=== PATIENT | female | born 1930 | race Caucasian/White ===

== ENCOUNTER 2016-09-22 08:52 | Outpatient (CLI) ==
[2014-10-23 16:27] VITALS: BMI 19.3
[2016-09-22 13:06] LABS: BASOPHILS % (AUTO) 0.5 % (0.0-3.0); EOSINOPHILS # (AUTO) 0.1 K/ul (0.0-0.7); EOSINOPHILS % (AUTO) 1.9 % (0.0-7.0); HEMATOCRIT 37.6 % (37.0-47.0); IMMATURE GRANULOCYTE % (AUTO) 0.4 % (0.0-5.0); LYMPHOCYTES # (AUTO) 1.8 K/uL (0.60-3.4); MEAN CORPUSCULAR HEMOGLOBIN 29.4 pg (27.0-31.0); MEAN CORPUSCULAR HGB CONC 31.9 (31.8-35.4); MEAN CORPUSCULAR VOLUME 92.2 fl (81.0-99.0); MONOCYTES # (AUTO) 0.4 K/uL (0.4-2.0); MONOCYTES % (AUTO) 6.7 (0-10); NEUTROPHILS # (AUTO) 3.3 K/ul (2.0-6.9); NEUTROPHILS % (AUTO) 58.5; PLATELET COUNT 222 10^3/uL (140-440); RED BLOOD COUNT 4.08 10^6/ul (4.20-5.40); WHITE BLOOD COUNT 5.69 K/ul (4.6-10.2)
[2016-09-22 13:23] LABS: ALBUMIN 4.3 g/dL (3.4-5.0); ALBUMIN/GLOBULIN RATIO 1.54; ANION GAP 14.3; BILIRUBIN,TOTAL 0.54 mg/dL (0.00-1.20); BUN/CREATININE RATIO 15.53; CALCIUM 11.4 mg/dL (8.2-10.2); CHOL/HDL RATIO 5.4 (4.5-5.5); CREATININE 1.03 mg/dL (0.60-1.30); POTASSIUM 3.3 mmol/L (3.5-5.10); TOTAL PROTEIN 7.1 g/dL (5.8-8.1)
[2016-09-22 13:43] LABS: BILIRUBIN,URINE Negative (NEGATIVE); KETONES,URINE Negative (NEGATIVE); LEUKOCYTE ESTERASE ,URINE 1+ (NEGATIVE); NITRITE,URINE Negative (NEGATIVE); PROTEIN,URINE Negative (NEGATIVE); URINE, BLOOD Negative (NEGATIVE)
[2016-09-22 13:46] LABS: ADD URINE MICROSCOPIC YES; BACTERIA,URINE 1+ (NOT PRESENT)
== END 2016-09-22 08:53 | disposition home or self-care (01) ==
LOC: LAB 08:52
PROVIDERS: ATTEND General Practice
DX: I10 Essential (primary) hypertension (principal); E55.9 Vitamin D deficiency, unspecified; E11.9 Type 2 diabetes mellitus without complications; Z79.899 Other long term (current) drug therapy
CPT/HCPCS: 36415; 80053; 80061; 81001; 82306; 83036; 85025; 87086; 87186

== ENCOUNTER 2016-10-03 17:48 | Outpatient (CLI) ==
[2014-10-23 16:27] VITALS: BMI 19.3
== END 2016-10-03 17:49 | disposition home or self-care (01) ==
LOC: LAB 17:48
PROVIDERS: ATTEND General Practice
DX: E34.9 Endocrine disorder, unspecified (principal)
CPT/HCPCS: 36415; 83970

== ENCOUNTER 2016-10-10 09:37 | Outpatient (CLI) | payer OTHER ==
[2014-10-23 16:27] VITALS: BMI 19.3
--- NOTE | 2016-10-10 11:49 | DI ---
EXAM: Fluoroscopic barium swallow HISTORY: One episode of choking with need of Heimlich maneuver. COMPARISON: None FINDINGS: Real time fluoroscopic evaluation was performed by Dr. Prabhjot Betancur with images provided for purposes of dictation. There is a normal stripping wave. There is nodular soft tissue creatin g some mild mass effect on the esophagus superiorly at the level of the superior aspect of the cervi margarita fusion hardware. This does not slowly flow of fluid and demonstrates approximately 50% narrowin g on lateral view. IMPRESSION: Minimal soft tissue posteriorly which may be within the esophagus or causing mass effec t on the esophagus at the level of the superior aspect of cervical fusion with approximately 50% shelly rowing on lateral view. Direct visualization is recommended.
== END 2016-10-10 09:38 | disposition home or self-care (01) ==
LOC: RAD 09:37
PROVIDERS: ATTEND General Practice
DX: T17.308A Unspecified foreign body in larynx causing other injury, initial encounter (principal)

== ENCOUNTER 2016-10-15 08:02 | Outpatient (CLI) ==
[2014-10-23 16:27] VITALS: BMI 19.3
--- NOTE | 2016-10-15 12:04 | NM ---
EXAM: Parathyroid scan HISTORY:Endocrine disorder, unspecified. COMPARISON:None of this type. PROCEDURE:The the patient was injected with 20.5 mCi of 99m technetium Sestamibi intravenously. Ant erior, left anterior oblique and right anterior oblique images were obtained at 15 minutes and again at 2 hours. Additional SPECT imaging was performed. FINDINGS:Initial images demonstrate normal physiologic distribution of activity within the salivary glands and thyroid gland and myocardium.The delayed images demonstrate normal washout of activity fr om the thyroid gland with no residual activity likely to represent parathyroid adenoma. The examinat ion covers the anatomy from the skull base through the upper margin of the left ventricle. IMPRESSION: 1.The parathyroid scan does not demonstrate evidence of a parathyroid adenoma. 2.The examination demonstrates normal physiologic activity within the thyroid gland, salivary glands , and left ventricular myocardium.
== END 2016-10-15 08:03 | disposition home or self-care (01) ==
LOC: RAD 08:02
PROVIDERS: ATTEND General Practice
DX: E34.9 Endocrine disorder, unspecified (principal); E83.52 Hypercalcemia

== ENCOUNTER 2016-11-06 13:04 | Outpatient (CLI) ==
[2014-10-23 16:27] VITALS: BMI 19.3
--- NOTE | 2016-11-06 14:25 | CT ---
EXAM: CT ABDOMEN AND PELVIS HISTORY: Weight loss, lower abdominal pain, previous appendectomy, cholecystectomy and hysterectomy TECHNIQUE: CT abdomen and pelvis without intravenous contrast. Images were reconstructed using 5 m m section thickness. Reformations were prepared. COMPARISON: 08/13/2014 FINDINGS: Diagnostic limitations exist without including contrast enhanced images. No focal hepatic or spleni c lesions identified. Gallbladder is absent. Moderate fatty replacement of the pancreas. Adrenal glands appear normal. No hydronephrosis or ureteral obstruction. Moderate atherosclerotic disease of the aorta. No gastric distension. No appendix is identified. There is moderate distal colon diverticulosis. Normal bowel gas pattern. No uterus identified. Urinary bladder within normal limits. There is no ascites or inflammatory infiltration of the abdominal fat. No abdominal wall hernia. Bones appear demineralized. There is moderately severe degenerative ibrahim ges of the spine. Lung bases are clear. No pneumoperitoneum. IMPRESSION: No distinct etiology for weight loss or abdominal pain identified. There is moderate d istal colon diverticulosis without signs of diverticulitis or bowel obstruction. No ascites or infl ammatory infiltration of the abdominal fat. No free air. There is moderate atherosclerotic disease of the aorta.
== END 2016-11-06 13:05 | disposition home or self-care (01) ==
LOC: RAD 13:04
PROVIDERS: ATTEND General Practice
DX: R63.4 Abnormal weight loss (principal); R68.83 Chills (without fever)

== ENCOUNTER 2017-01-23 14:16 | Outpatient (CLI) | payer OTHER ==
[2014-10-23 16:27] VITALS: BMI 19.3
--- NOTE | 2017-01-23 16:15 | US ---
EXAM: ULTRASOUND CAROTID DUPLEX, BILATERAL HISTORY: Dizziness and giddiness FINDINGS: Brooks-scale ultrasound, color Doppler and spectral analysis was performed. Velocities are in meters per second. There is a large amount of heterogeneous atherosclerotic plaque distributed within the carotid bulbs and internal/external carotid arteries with some areas appearing to be at least 50% vessel diameter visually. RIGHT: External carotid artery peak systolic velocity: 1.1 Common carotid artery peak systolic velocity/end diastolic velocity: 0.4/0.1 Internal carotid artery peak systolic velocity: 1.5 ICA/CCA peak systolic velocity ratio: 3.5 ICA end diastolic velocity: 0.1 LEFT: External carotid artery peak systolic velocity: 0.6 Common carotid artery peak systolic velocity/end diastolic velocity: 0.6/0.1 Internal carotid artery peak systolic velocity: 1.1 ICA/CCA peak systolic velocity ratio: 1.7 ICA end diastolic velocity: 0.2 The right and left vertebral arteries were antegrade. IMPRESSION: 1. There is a large amount of heterogeneous atherosclerotic plaque distributed within the carotid b ulbs and internal/external carotid arteries with some areas appearing to be at least 50% vessel diam eter visually. 2. The right internal carotid artery peak systolic velocity of 1.5 meters per second falls within t he moderate range of stenosis. Moderate indicates 50 - 69% vessel diameter. The right-sided ICA/CC A peak systolic velocity ratio 3.5 correlates with this. 3. No sonographic evidence of hemodynamically significant stenosis on the left. 4. Both vertebral arteries were antegrade.
== END 2017-01-23 14:17 | disposition home or self-care (01) ==
LOC: RAD 14:16
PROVIDERS: ATTEND General Practice
DX: R42 Dizziness and giddiness (principal)

== ENCOUNTER 2017-01-29 11:56 | Outpatient (CLI) | payer OTHER ==
[2014-10-23 16:27] VITALS: BMI 19.3
--- NOTE | 2017-01-29 13:32 | MRI ---
EXAM: MRA brain without IV contrast. DATE: 01/29/2017. HISTORY: Dizziness and giddiness. TECHNIQUE: 3-D [id number] sequence centered on the [place] was performed without IV contr ast, using 1.2 Yana magnet. 3-D MIP reconstruction images of the intracranial arteries were produc ed in addition to the axial source images. Note: Degree of arterial vascular stenoses determined using NASCET criteria. COMPARISON: MRI brain 01/29/2017. FINDINGS: Neither vertebral artery is dominant. Basilar artery is normal in diameter, without foca l stenosis, dissection or aneurysm. Each superior cerebellar artery is intact. Right P1 segment is absent. Right COFFEE BLENDER originates from the right supraclinoid ICA.. The left PCOM is intact. ACOM is not visible . Symmetric bilateral blood flow is evident within the anterior, middle, and posterior cerebral artery distributions peripherally. No intracranial aneurysm or AVM is detected. Both rachele ous ICAs are normal. Right cavernous ICA C3 segment demonstrates a 4.4 mm length region of reduced flow signal and tandem areas of luminal reduction to 1 mm diameter, compared with an intervening 2.6 mm diameter focus. Right C Q segment cavernous ICA diameter is 1.4 mm diameter. Cavernous ICA diam eter is 1 mm diameter x 5.2 mm length. Left cavernous ICA C3 segment demonstrates that the 7.7 mm le ngth region of will mild letter narrowing to 1.7 mm diameter, compared to a more proximal diameter o f 3.1 mm. C2 segment is approximately 1 mm diameter x 3 mm length. Left cavernous ICA C1 segment 7 mm length luminal diameter reduction to 1 mm and reduced flow signal are observed. IMPRESSIONS: 1. Atretic right PCOM and ACOM. 2. Intact left PCOM. 3. No intracranial aneurysm or AVM. 4. Vertebral / basilar arteries are normal. 5. Bilateral petrous ICAs are normal. 6. Bilateral cavernous ICA moderate stenoses (50-69%).
--- NOTE | 2017-01-29 13:50 | MRI ---
EXAM: MRI brain without IV contrast. DATE: 01/29/2017. HISTORY: Dizziness and giddiness. TECHNIQUE: Sagittal T1W, axial T2W, axial FLAIR, axial T1W, axial DWI, and coronal T2W GRE sequence s of the brain were obtained using 1.5 Yana magnet. No IV contrast. COMPARISON: MRA brain 01/29/2017. CT head 05/28/2016, line. FINDINGS: The ventricles, cisterns, and subarachnoid spaces are commensurately enlarged due to invo lutional change. No midline shift, mass effect or abnormal extra-axial fluid collection is apparent . Probable old infarct (9.5 mm) in the left frontal centrum semiovale and axial image #19. Subtle T2W bright, T2W/FLAIR dark, 4.3 mm and 10 mm foci in the left cerebellum are likely old infarcts. N o acute infarct, hemorrhage or neoplasm is identified. Small, confluent rim of T2W/FLAIR hyperinten sity is observed in the white matter abutting each lateral ventricle. Multiple 2-19 mm, T2W/FLAIR b right foci are scattered within the mendenhall radiata, centrum semiovale, and subcortical white matter bilaterally. The quinn - white matter differentiation is normal. The 7th/8th cranial nerve complexe s, cerebellopontine angles, brainstem, and visible cervical spinal cord are normal. There is no cer ebellar tonsillar ectopia. The pituitary gland is normal in size and signal. Corpus callosum is no rmal in size and configuration. Flow voids are present in the major intracranial arteries and in th e dural venous sinuses. No aneurysm, AVM or dural venous sinus thrombosis is apparent. Appearance of the lens of each eye suggests prior cataract surgery. No other orbit abnormality is identified. The mastoid air cells are unremarkable. There is no acute sinusitis. No neck mass or lymphadenopa thy is detected. No calvarial neoplasm or acute fracture is evident. There is approximate 1.5 mm an terior subluxation of C3 relative to C4. Metal susceptibility artifact from previous ACDF at C5-6 i s noted. IMPRESSIONS: 1. No acute infarct, hemorrhage, mass or hydrocephalus. 2. Mild/moderate supratentorial small vessel disease. 3. 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 4. Mild cerebral and minor cerebellar atrophy. 5. S/P ACDF at C5-C6-C7. C3-4 mild DDD.
== END 2017-01-29 11:57 | disposition home or self-care (01) ==
LOC: RAD 11:56
PROVIDERS: ATTEND General Practice
DX: R42 Dizziness and giddiness (principal); I65.21 Occlusion and stenosis of right carotid artery; H53.8 Other visual disturbances

== ENCOUNTER 2017-05-07 12:42 | Outpatient (CLI) | payer OTHER ==
[2014-10-23 16:27] VITALS: BMI 19.3
[2017-05-07 12:48] LABS: BASOPHILS # (AUTO) 0.1 K/uL (0-0.2); BASOPHILS % (AUTO) 0.9 % (0.0-3.0); EOSINOPHILS # (AUTO) 0.2 K/ul (0.0-0.7); EOSINOPHILS % (AUTO) 3.5 % (0.0-7.0); HEMATOCRIT 34.5 % (37.0-47.0); HEMOGLOBIN 11.6 g/dl (12.0-16.0); IMMATURE GRANULOCYTE % (AUTO) 0.3 % (0.0-5.0); LYMPHOCYTES # (AUTO) 1.7 K/uL (0.60-3.4); LYMPHOCYTES % (AUTO) 28.8 (10.0-50.0); MEAN CORPUSCULAR HEMOGLOBIN 29.7 pg (27.0-31.0); MEAN CORPUSCULAR HGB CONC 33.6 (31.8-35.4); MEAN CORPUSCULAR VOLUME 88.2 fl (81.0-99.0); MONOCYTES # (AUTO) 0.6 K/uL (0.4-2.0); MONOCYTES % (AUTO) 10.4 (0-10); NEUTROPHILS # (AUTO) 3.2 K/ul (2.0-6.9); NEUTROPHILS % (AUTO) 56.1; PLATELET COUNT 221 10^3/uL (140-440); RED BLOOD COUNT 3.91 10^6/ul (4.20-5.40); WHITE BLOOD COUNT 5.76 K/ul (4.6-10.2)
[2017-05-07 12:55] LABS: BILIRUBIN,URINE Negative (NEGATIVE); KETONES,URINE Negative (NEGATIVE); LEUKOCYTE ESTERASE ,URINE 3+ (NEGATIVE); NITRITE,URINE Negative (NEGATIVE); PH,URINE 6.5 (5-9); PROTEIN,URINE Negative (NEGATIVE); URINE, BLOOD Negative (NEGATIVE)
[2017-05-07 12:58] LABS: ADD URINE MICROSCOPIC YES
[2017-05-07 13:08] LABS: ALBUMIN 3.8 g/dL (3.4-5.0); ALBUMIN/GLOBULIN RATIO 1.52; BILIRUBIN,TOTAL 0.25 mg/dL (0.00-1.20); BUN/CREATININE RATIO 15.62; CALCIUM 10.8 mg/dL (8.2-10.2); CHOL/HDL RATIO 3.8 (4.5-5.5); CREATININE 1.28 mg/dL (0.60-1.30); TOTAL PROTEIN 6.3 g/dL (5.8-8.1)
== END 2017-05-07 12:43 | disposition home or self-care (01) ==
LOC: LAB 12:42
PROVIDERS: ATTEND General Practice
DX: E11.9 Type 2 diabetes mellitus without complications (principal); I25.10 Atherosclerotic heart disease of native coronary artery without angina pectoris; I10 Essential (primary) hypertension; Z79.899 Other long term (current) drug therapy
CPT/HCPCS: 36415; 80053; 80061; 81001; 85025

== ENCOUNTER 2017-06-15 16:10 | Outpatient (CLI) | payer OTHER ==
[2014-10-23 16:27] VITALS: BMI 19.3
== END 2017-06-15 16:11 | disposition home or self-care (01) ==
LOC: LAB 16:10
PROVIDERS: ATTEND General Practice
DX: E55.9 Vitamin D deficiency, unspecified (principal)
CPT/HCPCS: 36415; 82306

== ENCOUNTER 2017-10-26 15:56 | Outpatient (CLI) | payer OTHER ==
[2014-10-23 16:27] VITALS: BMI 19.3
== END 2017-10-26 15:57 | disposition home or self-care (01) ==
LOC: LAB 15:56
PROVIDERS: ATTEND General Practice
DX: I10 Essential (primary) hypertension (principal); I25.10 Atherosclerotic heart disease of native coronary artery without angina pectoris; M54.6 Pain in thoracic spine; E11.9 Type 2 diabetes mellitus without complications; Z79.899 Other long term (current) drug therapy
CPT/HCPCS: 36415; 80053; 80061; 81001; 82550; 83036; 84484; 85025; 87086; 93005; 93010

== ENCOUNTER 2017-10-26 17:55 | Inpatient (IN) ==
[2017-10-26] MEDS ORDERED: TYLENOL PO PRN (19:03)
[2017-10-26] MEDS ORDERED: DRISDOL PO SCH (19:30)
[2017-10-26 20:13] VITALS: BMI 18.3
--- NOTE | 2017-10-26 20:17 | DI ---
EXAM: AP single view of the chest. HISTORY: Respiratory/cough. FINDINGS: There is fusion hardware in the spine. The cardiac silhouette and pulmonary vasculature are within normal limits. The costophrenic angles are clear. No infiltrate or consolidation. Impression: No acute cardiopulmonary disease.
[2017-10-26] MEDS ORDERED: ISOSORBIDE MONONITRATE 120 MG PO SCH (21:00)
[2017-10-26] MEDS ORDERED: TOPROL XL PO SCH (21:00)
[2017-10-26] MEDS: D5%-NS-KCL 20 MEQ/L IV SOL 1,000 ML IV SCH (21:54)
[2017-10-26] MEDS ORDERED: IMDUR ONE (22:16)
[2017-10-26] MEDS: NORVASC PO SCH (22:19)
[2017-10-26] MEDS: ATIVAN PO PRN (22:20)
[2017-10-27] MEDS ORDERED: PRILOSEC PO SCH (06:30)
[2017-10-27] MEDS: TRADJENTA PO SCH (08:23)
[2017-10-27] MEDS: PRILOSEC PO SCH ×2 (08:24→17:00)
[2017-10-27] MEDS: LOPRESSOR PO SCH (08:24)
[2017-10-27] MEDS: COZAAR PO SCH (08:24)
[2017-10-27] MEDS: HYDROCHLOROTHIAZIDE PO SCH (08:24)
[2017-10-27] MEDS: D5%-NS-KCL 20 MEQ/L IV SOL 1,000 ML IV SCH ×2 (08:27→18:25)
[2017-10-27] MEDS ORDERED: HYZAAR 50-12.5 MG TAB PO SCH (09:00)
[2017-10-27] MEDS ORDERED: NON-FORMULARY MEDICATION (Hydrochlorothiazide [Hydrochlorothiazide] 12.5 MG) PO SCH (09:00)
[2017-10-27] MEDS ORDERED: NON-FORMULARY MEDICATION (Amlodipine Besylate [Norvasc] 2.5 MG) PO SCH (09:00)
[2017-10-27] MEDS: NORVASC PO SCH (20:45)
[2017-10-27] MEDS: IMDUR PO SCH (20:45)
[2017-10-28] MEDS: D5%-NS-KCL 20 MEQ/L IV SOL 1,000 ML IV SCH ×2 (04:28→15:08)
[2017-10-28] MEDS: PRILOSEC PO SCH ×2 (05:47→17:06)
[2017-10-28] MEDS: TRADJENTA PO SCH (08:29)
[2017-10-28] MEDS: LOPRESSOR PO SCH (08:29)
[2017-10-28] MEDS: HYDROCHLOROTHIAZIDE PO SCH (08:30)
[2017-10-28] MEDS: COZAAR PO SCH (08:30)
[2017-10-28] MEDS: MIRALAX PO PRN (12:55)
[2017-10-28] MEDS: CIPRO PO SCH ×2 (12:56→20:42)
[2017-10-28] MEDS: IMDUR PO SCH (20:42)
[2017-10-28] MEDS: NORVASC PO SCH (20:43)
[2017-10-28] MEDS: ATIVAN PO PRN (20:44)
[2017-10-29] MEDS: CIPRO PO SCH ×2 (05:39→20:18)
[2017-10-29] MEDS: PRILOSEC PO SCH ×2 (05:39→16:31)
--- NOTE | 2017-10-29 07:50 | PN ---
DATE OF VISIT: 10/27/17 The patient claims that she feels better today and the heaviness in the arm and shoulder area has more or less faded away. She denies any pain in the back, which she had previously prior to the Ranexa. She did have studies in [place] by her memorial mason. Those were negative. The patient's memorial mason is Dr. Jack. I will try to talk to him tomorrow. LUNGS: Her lungs are clear auscultation. HEART: Normal sinus rhythm. She told me that her daughter had looked at Ranexa and the symptoms that she is experiencing are part of the adverse effects of the medication. The patient, today, 10/27/2017 at 6 p.m. showed a temperature of 97.9, pulse 68 , blood pressure 145/60, respiratory rate 16, oxygen saturation 100 at room air. She did eat 75% of her dinner. Her CK and Troponin on admission 2017 were normal. EKG is slightly abnormal, but no acute changes. NATALIAD
--- NOTE | 2017-10-29 08:02 | PN ---
DATE OF VISIT: 10/28/17 The patient's CBC today showed a normal WBC with a declining hemoglobin and hematocrit from 9.3 to 8.9 and from 28 to 27.4 respectively. This patient's previous hemoglobin and hematocrit were higher, although below normal. I am wondering whether this patient's pain is probably related to the anemia, since the carrying capacity for oxygen is much less. The patient, according to Ashley Stanton, has an appointment with Dr. Jack tomorrow. I feel like maybe she should go there and we will discharge her from here and let Dr. Jack decide. Her E GFR was 54 yesterday and 63 today and the BUN was 16 down to 10. The patient had not been eating or drinking very much and that may have been the reason for the slightly elevated BUN, near upper limit of normal. Her total protein is low at 5.1 on admission and is 4.8 the following day. Her hemoglobin prior to admission was 10.8 at the office. Her BUN then was 18. The urinalysis was abnormal with 30-50 WBC's, 1+ leukocyte esterase, nitrite negative, 3+ blood. Urine culture E.Coli sensitive to a host of medications including Cipro, Penicillin, Cephalosporin, Aminoglycoside, plus Bactrim. The patient is allergic to Metformin, Penicillin and Codeine. The patient's urinalysis prior to admission showed E. Coli and sensitive to host of medications and this patient is given Cipro 500 mg twice a day. Again, her hemoglobin was 10.8 prior to admission, but the BUN was 18. She was dehydrated since she was not eating. With hydration this patient has a severe anemia with source undetermined. She also has hypoproteinemia, as well as hypoalbuminemia. I will try to talk to Dr. Jack today whether blood transfusion maybe helpful to this patient. [facility]
--- NOTE | 2017-10-29 08:09 | PN ---
DATE: 10/28/17 at 02:[address] YOLANDA GONZALEZ WITH REGARDS TO MRS. ELIZABETH STRICKLAND I did relay to him the history and that the patient is in the hospital. The patient's hemoglobin is down to 8.9. I did inform him that I stopped the Ranexa and she seemed to feel better. I did inform him also on what Ranexa was doing to her. He mentioned that maybe a blood transfusion might help the problem of chest pain or angina. I had explained to the patient earlier that that maybe part of the reason why she has anginal pain because of the lack of RBC that carries oxygen. This patient will again be given a 2 unit transfusion and see if her pain would improve. Dr. Gonzalez told me that he will be glad to see her anytime when she is done with the transfusion and when she is at home. I did tell me that she had an appointment with him today or tomorrow, but she had cancelled that. TUCKER
[2017-10-29] MEDS: MIRALAX PO PRN (08:55)
[2017-10-29] MEDS: HYDROCHLOROTHIAZIDE PO SCH (08:56)
[2017-10-29] MEDS: COZAAR PO SCH (08:56)
[2017-10-29] MEDS: TRADJENTA PO SCH (08:57)
[2017-10-29] MEDS: LOPRESSOR PO SCH (08:57)
[2017-10-29] MEDS ORDERED: TYLENOL PO PRN (13:34)
--- NOTE | 2017-10-29 14:13 | PN ---
DATE: 10/28/17 CONVERSATION WITH ELIZABETH GUPTA The patient is in the hospital because of the heaviness in both arms with Ranexa. The Ranexa was discontinued. I did tell Ms. Gupta that I had talked to Dr. Jack, her catalyst supervisor who prescribed the Ranexa and informed Dr. Jack that I had stopped the medication and that she is in the hospital. I also informed Dr. Jack that her hemoglobin and hematocrit are down further at 8.[address] Jack felt that maybe blood transfusion would help with the chest pain and in the back. I had explained that earlier to the patient that might have contributed to her chest problem. Dr. Jack felt that the blood transfusion may help and I do agree with that and I told the patient that we will give her 2 units of transfusion, one tonight and one tomorrow and see what happens. She also told me that her daughter and son in law would like to talk to me. I passed by the room again, but they were still not there and she told me that they would be back tonight. I told her that I may not be in the hospital anymore by the time they come back. I would be glad to talk to them tomorrow. TUCKER
[2017-10-29] MEDS: ATIVAN PO PRN (20:17)
[2017-10-29] MEDS: IMDUR PO SCH (20:17)
[2017-10-29] MEDS: NORVASC PO SCH (20:17)
[2017-10-30] MEDS: CIPRO PO SCH (05:36)
[2017-10-30] MEDS: PRILOSEC PO SCH (05:36)
[2017-10-30 06:01] VITALS: TEMP 97.7
[2017-10-30] MEDS: LOPRESSOR PO SCH (09:42)
[2017-10-30] MEDS: COZAAR PO SCH (09:42)
[2017-10-30] MEDS: TRADJENTA PO SCH (09:42)
[2017-10-30] MEDS: HYDROCHLOROTHIAZIDE PO SCH (09:42)
[2017-10-30 11:04] VITALS: BP 130/70
--- NOTE | 2017-11-19 10:03 | PN ---
DATE OF VISIT: 10/29/17 SUBJECTIVE: This is an 87 year old female who was admitted to the hospital because of the pain in the back that improved with Ranexa but now has heaviness in both arms and shoulder. LUNGS: Clear to auscultation in both sides HEART: Normal sinus rhythm The patient was given 2 units of transfusion and the hgb after 4:25pm 10/29/17 was 13.5, hct 39.9. The patient claims to be feeling well and had no reaction to the transfusion. Her color is much better and she feels stronger. Told her that we will see how she does tomorrow and most likely be discharged. VITAL SIGNS: Temperature 98.2, pulse 69, blood pressure 170/88, respiratory rate 20, oxygen saturation 95 at room air. She ate only 25% of diner. She however is in good spirits. TUCKER
--- NOTE | 2017-11-26 10:58 | DS ---
PATIENT IDENTIFICATION: This is an 86 year old female admitted to the hospital because of heaviness in both arms with prior history of coronary artery disease with balloon angioplasty stent. The patient had previous posterior chest wall pain and was seen by her certified master safe technician and had studies done showing no myocardial ischemia. The patient's medication Imdur ER was increased to 120mg daily at bedtime and Ranexa 500mg was added. The patient was feeling bad since then and increasingly. The patient was seen at the office and CBC plus CMP and urinalysis was done and the patient was found to have severe anemia with abnormal urinalysis, hematuria. HOSPITAL COURSE: The patient was admitted to the hospital to rule out any angina. She also will be treated for the urinary tract infection if the culture does show bacterial growth. The patient on admission has no significant abnormalities on physical examination except for the Pallor. LUNGS: Clear HEART: Normal sinus rhythm The Ranexa was discontinued but the Imdur was left in place. The other medications also were continued. The patient's repeat CBC on 10/27/17 showed a severe anemia with hgb of 9.3, hct 28, chemistry unremarkably. EGFR 54, liver panel normal and total protein as well as albumin is below normal. The Troponin and creatinine kinase were normal. The patient claims to be feeling better without the Ranexa. I had discussed the case with her certified master safe technician, Dr. José Luis Jack and felt that because of the anemia which maybe the reason for the pain on the posterior chest as well as the heaviness in both arms that a blood transfusion maybe helpful. I had discussed this with the patient as well as relatives and the reason. I did also tell them that I had discussed these with Dr. Jack. 2 units of packed cells were then typed and crossed and the patient received a transfusion in the evening of 10/27/17. Her hgb after the transfusion the following day 10/28/17 was 11.4, hct 33.9. The urine culture showed e-coli which is sensitive to Cipro and the patient was prescribed Cipro 500mg twice a day. The patient tolerated the medication well. The patient claimed that she feels much better and the pain in the back is nonexistent and the heaviness in the arm in both sides has decreased remarkably. Another unit was given on 10/28/17 and the CBC on 10/29/17 showed a hgb of 13.5, hct 39.9. Chemistries were unremarkably. The EGFR is now 60 with a BUN of 12, creatinine 0.89. Total protein and Albumin is low. We had discussed this with the patient and family. I had informed her that she needs to eat more beans and more meat and meat should be lean. Diet should also have vegetables. This patient had been advised previously for gluten free diet but she had not followed a gluten free diet. This might be helpful but had to stay for time to see the effects because of her IBS. The patient was encouraged to ambulate and the patient on was alert, ambulatory with movement of all extremities. Her vital signs showed a temperature 97.7, pulse 57, blood pressure 130/70, respiratory rate 16 , oxygen saturation 96 at room air. FACE: Symmetrical and equal. LUNGS: Remained clear to auscultation in both sides HEART: Audible and regular with good tones Her color is good. The patient claimed that she is feeling much better and she does not have any pain in the bed as well as the resolution of the heaviness of both arms and shoulders. She is being discharged today and her hgb is now 12.7, hct 37.3 with normal WBC 6,900, RBC 4,330,000, plt count 147,000. Chemistries are normal and her albumin and total protein are markedly below normal. I reiterated to her and to her friend that she needed to eat more beans any kind of beans, meat that is lean and fish. If she doesn't like mean then she should eat more fish. She also should eat more vegetables and fruits. Her blood sugar on the morning of discharge was 93, fasting. The EGFR was 62. The patient on discharged is advised to continue the Lorazepam, Hydrochlorothiazide, Miralax, Vitamin D 2, Omeprazole maybe omit if possible. She did tell me that she has burning after three days without medication. I did explain to her the problems that may arise from the Omeprazole. It does increase incidence of pneumonia and also infers with the absorption of the multivitamins since the gastric fluid is no longer acid. Will continue the Tradjenta, Amlodipine, Losartan, Metoprolol, Isosorbide at 120mg. The Metoprolol Tartrate maybe changed to Metoprolol Succinate 25mg daily. The patient should have a repeat urinalysis when she comes back to the office in one week. The patient is to continue Cipro for the next few days. She is to see me 11/06/17 at 12:30pm. She see me sooner if she has any problems or to the emergency room if the office is closed. FINAL DIAGNOSES: 1. Angina, resolved 2. History of coronary artery disease, status post cardiac catheterization and angioplasty with stent application 3. Adverse reaction to Ranexa 4. Severe anemia transfused two units 5. Type 2 diabetes Mellitus 6. History of IBS 7. Urinary tract infection, e-coli sensitive to Cipro 8. Hypertension on medication 9. History of GERD on medication 10.Vitamin D deficiency This patient should have a repeat urinalysis when she comes to the office and that Metoprolol Tartrate would probably be best replaced with Metoprolol Succinate. We will continue to monitor the HGB and HCT. PROGNOSIS: Guarded. MTDD
--- NOTE | 2017-12-04 12:39 | HP ---
CHIEF COMPLAINT: Heaviness in both shoulders and arms, plus abnormal urinalysis , microscopic hematuria plus bacteria. HISTORY OF PRESENT ILLNESS: The patient had been to her lockstitch pocket setter, Dr. Jack, because of pain in the back and was evaluated. The patient has medications consisting of Imdur, which was increased to 120 mg ER daily at bedtime. The patient also was then given Ranexa 500 mg twice a day. The patient claims that ever since she was given Ranexa and Imdur was increased to 120 mg that she felt bad. The pain in the back more or less had resolved, but she now has heaviness in both arms, as well as her shoulders. She was seen at the office and had 3+ blood with markedly elevated red cells in the urine with moderate anemia. The patient was advised admission to the hospital because of the heaviness in both arms, as well as further diagnosis of the microscopic hematuria. PAST PERSONAL HISTORY: The patient had cardiac catheterization in January 2012 and stent insertion. She had previous tonsillectomy, cholecystectomy, appendectomy. She also was diagnosed to have an IBS, diarrhea and constipation. The patient also was given sublingual nitroglycerin. Her medications then were Imdur 30 mg ER daily. She had a recent stress sestamibi by her lockstitch pocket setter and that was essentially unremarkable according to her. Diabetes mellitus type II. FAMILY HISTORY: There were members of the family that had CVA, hemorrhage, colon and gastric malignancy. SOCIAL HISTORY: The patient is a times two and is self sufficient and resides alone with a good support from the family. The patient never did smoke and does not drink any alcoholic beverages. MEDICATIONS: Prior to this admission Tylenol 1000 mg two to three times a day Lorazepam 0.5 mg at bedtime Hydrochlorothiazide 12.5 mg daily MiraLAX 17 gram powder, one packet dissolved in water daily Vitamin D2 50,000 IU, monthly Omeprazole 20 mg capsule twice a day Linagliptin 5 mg daily Amlodipine 2.5 mg daily Losartan 100 mg daily Metoprolol Tartrate 25 mg daily Ranexa 500 mg twice a day Imdur ER 120 mg at bedtime ALLERGIES: The patient has reaction to Metformin, Penicillin and Codeine. REVIEW OF SYSTEMS: CONSTITUTIONAL: The patient has no fever or chills, but is complaining of increasing fatigue and heaviness on both arms and shoulders. She no longer has the back pain, thoracic area. 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 VISUAL: The patient is alert and denies any double vision, blurred vision, or transient loss of vision. AUDITORY: Hearing is somewhat decreased, but adequate. She denies any dizziness now, although she has it intermittently. No pain or drainage. RESPIRATORY: The patient denies any cough that is bothersome. She does have some shortness of breath with exertion or ambulation. CARDIOVASCULAR: The patient had chest pain, posterior chest, prior to the Ranexa. She had a work up done by her lockstitch pocket setter and the work up was essentially unremarkable or no signs of any myocardial ischemia. The patient, then at that time, was placed on Ranexa 500 mg twice a day and they Imdur was increased to 120 mg at bedtime. GASTROINTESTINAL: The appetite is decreased and the patient's food intake may not be as much as what she would need. She has no nausea or vomiting. GENITOURINARY: The patient denies any burning on urination. MUSCULOSKELETAL: The patient was complaining of heaviness in both arms and shoulders. ENDOCRINE: Negative, but the patient has type II diabetes mellitus. INTEGUMENT: The patient denies any pruritus or any rash. HEMATOLOGIC: Negative. PSYCHIATRIC: Affect is normal and the patient is always pleasant. PHYSICAL EXAMINATION: GENERAL: We have an 86 year old female admitted to the hospital because of feeling increasingly fatigued with heaviness on both arms and shoulders. This patient is known to have coronary artery disease and had a cardiac catheterization with balloon angioplasty and stent deployment. VITAL SIGNS: Temperature 98.2, pulse 66, blood pressure 166/69, left arm, 174/ 65 right arm, respiratory rate 18, oxygen saturation 100 at room air. The patient is 4'11" and weighs 91 pounds. HEAD: Unremarkable. Scalp with no active dermatitis. FACE: Symmetrical and equal with no facial weakness. There is no redness in the face or the forehead and no significant tenderness to palpation under pressure in the frontal or maxillary sinus areas. EYES: Pupils equal/reactive to light about 3 mm in size. Conjunctivae not pale. Sclerae not icteric. MOUTH: Unremarkable THROAT: No inflammation, tumors or exudate. NECK: No masses. No bruit. No tenderness. No rigidity. CHEST: Essentially symmetrical and equal with good expansion with no remarkable tenderness. LUNGS: Breath sounds are heard in both sides. No rales or wheezing. HEART: Audible and regular with good tones. No murmurs. ABDOMEN: Flat, soft with no remarkable tenderness. No guarding. No masses palpable and no bruit. EXTERNAL GENITALIA: Not examined. PELVIC AND RECTAL: Not performed. LOWER EXTREMITIES: Essentially symmetrical and equal with no significant ankle edema and anterior pulses are present. UPPER EXTREMITIES: Symmetrical and equal. Palpation of both arms revealed no abnormal tenderness or masses and still are negative for any adenopathies. The radial pulses are of good volume and present in both sides. ASSESSMENT: 1. HEAVINESS IN BOTH ARMS AND SHOULDERS, RULE OUT ANGINA 2. HISTORY OF CORONARY ARTERY DISEASE, STATUS POST CARDIAC CATHETERIZATION AND BALLOON ANGIOPLASTY WITH STENT 3. MODERATE TO SEVERE ANEMIA 4. MICROSCOPIC HEMATURIA, PLUS BACTERIA-URINARY TRACT INFECTION 5. TYPE II DIABETES MELLITUS 6. HISTORY OF IBS 7. HISTORY OF VITAMIN D DEFICIENCY 8. HISTORY OF GERD TREATED WITH OMEPRAZOLE 9. HYPERTENSION ON MEDICATION MTDD
== END 2017-10-30 14:22 | disposition home or self-care (01) | DRG 303 ==
LOC: MEDSURG B 17:55
PROVIDERS: ADMIT General Practice; ATTEND General Practice
PROC: 30233N1 Transfusion of Nonautologous Red Blood Cells into Peripheral Vein, Percutaneous Approach (ICD-10-PCS; principal; 2017-10-28)
PROC: 30233N1 Transfusion of Nonautologous Red Blood Cells into Peripheral Vein, Percutaneous Approach (ICD-10-PCS; 2017-10-29)
DX: I25.709 Atherosclerosis of coronary artery bypass graft(s), unspecified, with unspecified angina pectoris (principal); N39.0 Urinary tract infection, site not specified; D64.9 Anemia, unspecified; E11.9 Type 2 diabetes mellitus without complications; R31.29 Other microscopic hematuria; E77.8 Other disorders of glycoprotein metabolism; E88.09 Other disorders of plasma-protein metabolism, not elsewhere classified; T46.995A Adverse effect of other agents primarily affecting the cardiovascular system, initial encounter; I10 Essential (primary) hypertension; M54.6 Pain in thoracic spine; K58.2 Mixed irritable bowel syndrome; K21.9 Gastro-esophageal reflux disease without esophagitis; B96.20 Unspecified Escherichia coli [E. coli] as the cause of diseases classified elsewhere; E55.9 Vitamin D deficiency, unspecified; Z79.899 Other long term (current) drug therapy; Z95.5 Presence of coronary angioplasty implant and graft
CPT/HCPCS: 36415; 36430; 80053; 80061; 81001; 82550; 83036; 84484; 85014; 85018; 85025; 86850; 86900; 86922; 87086; 87186; 93005; 93010; 99223; 99232; 99233; 99239

== ENCOUNTER 2017-12-14 14:27 | Outpatient (CLI) | END 2017-12-14 14:28 | disposition home or self-care (01) | LOC: FCC-LAB 14:27 | PROVIDERS: ATTEND General Practice | DX: E55.9 Vitamin D deficiency, unspecified (principal); Z79.899 Other long term (current) drug therapy | CPT/HCPCS: 36415; 82306 ==

== ENCOUNTER 2017-12-21 11:23 | Outpatient (CLI) | END 2017-12-21 11:24 | disposition home or self-care (01) | LOC: LAB 11:23 | PROVIDERS: ATTEND General Practice | DX: E55.9 Vitamin D deficiency, unspecified (principal); I25.10 Atherosclerotic heart disease of native coronary artery without angina pectoris; N18.3 Chronic kidney disease, stage 3 (moderate); E53.8 Deficiency of other specified B group vitamins; I10 Essential (primary) hypertension; Z79.899 Other long term (current) drug therapy; M54.6 Pain in thoracic spine | CPT/HCPCS: 36415; 80053; 80061; 81001; 85025; 87086; 87186 ==

== ENCOUNTER 2017-12-21 11:55 | Outpatient (CLI) ==
--- NOTE | 2017-12-21 13:17 | CT ---
EXAM: CT chest without contrast HISTORY: Pain in the thoracic spine after fall several months prior COMPARISON: CT thoracic spine same day and CT chest 08/13/2014 TECHNIQUE: Serial axial images of the chest were obtained from the lung apices to the upper abdomen without contrast. These were viewed in multiple planes. FINDINGS: The thyroid is normal. The visualized vessels demonstrate mild atherosclerotic disease wi th the ascending aorta measuring 3.4 cm in diameter. The heart is normal in size without pericardial effusion. Coronary calcifications are present. There are no pathologically enlarged mediastinal or h ilar lymph nodes. There is no pneumothorax or pleural effusion. There is a stable 0.2 cm pulmonary nodule right upper lobe on image 9. There is minimal bibasilar atelectasis. No acute consolidation, nodule or mass is identified. The airways are patent. Limited views of the soft tissues in the upper abdomen demonstrate prior cholecystectomy. There is a small hiatal hernia. The thoracic spine is better visualized on same day CT thoracic spine with mul tilevel degenerative disease identified on today's examination. No rib fracture is identified. IMPRESSION: 1. No acute cardiopulmonary process. 2. Scattered atherosclerotic disease and the ascending aorta is unchanged measuring 3.4 cm in diamet er. 3. Small hiatal hernia.
--- NOTE | 2017-12-21 13:30 | CT ---
EXAM: CT thoracic spine without contrast HISTORY: Mid back pain after fall several months prior. This pain has been present for multiple year s, but has worsened since fall. COMPARISON: CT chest same day and 01/23/2017 TECHNIQUE: Serial axial images of the thoracic spine were obtained without contrast. These were vie wed in multiple planes. FINDINGS: There is multilevel disc space narrowing with anterior posterior disc osteophyte formation. There is partial fusion of T10-T11. There is mild facet arthropathy. There is anterior cervical f usion hardware present. There is no significant scoliosis. Soft tissues demonstrate moderate athero sclerotic disease. The lungs are better evaluated on same day CT chest. There is no central or neur al foraminal narrowing. IMPRESSION: 1. No acute compression fracture or subluxation. 2. 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
== END 2017-12-21 11:56 | disposition home or self-care (01) ==
LOC: RAD 11:55
PROVIDERS: ATTEND General Practice
DX: M54.6 Pain in thoracic spine (principal)

== ENCOUNTER 2018-01-05 12:22 | Outpatient (CLI) | END 2018-01-05 12:23 | disposition home or self-care (01) | LOC: FCC-LAB 12:22 | PROVIDERS: ATTEND General Practice | DX: R42 Dizziness and giddiness (principal); E11.9 Type 2 diabetes mellitus without complications; I10 Essential (primary) hypertension; I25.10 Atherosclerotic heart disease of native coronary artery without angina pectoris; N18.3 Chronic kidney disease, stage 3 (moderate); E55.9 Vitamin D deficiency, unspecified; G47.09 Other insomnia; Z79.899 Other long term (current) drug therapy | CPT/HCPCS: 36415; 80053; 80061; 81001; 83036; 85025 ==

== ENCOUNTER 2018-04-19 14:53 | Outpatient (CLI) ==
[2018-03-26 15:47] VITALS: BMI 17.8
== END 2018-04-19 14:54 | disposition home or self-care (01) ==
LOC: LAB 14:53
PROVIDERS: ATTEND General Practice
DX: A04.72 Enterocolitis due to Clostridium difficile, not specified as recurrent (principal)
CPT/HCPCS: 87493

== ENCOUNTER 2018-05-11 16:10 | Outpatient (CLI) | payer OTHER ==
[2018-03-26 15:47] VITALS: BMI 17.8
== END 2018-05-11 16:11 | disposition home or self-care (01) ==
LOC: FCC-LAB 16:10
PROVIDERS: ATTEND General Practice
DX: R30.0 Dysuria (principal)
CPT/HCPCS: 81001; 87086; 87186

== ENCOUNTER 2018-06-01 17:47 | Outpatient (CLI) ==
[2018-03-26 15:47] VITALS: BMI 17.8
== END 2018-06-01 17:48 | disposition home or self-care (01) ==
LOC: NONPT 17:47
PROVIDERS: ATTEND General Practice
DX: R30.0 Dysuria (principal)
CPT/HCPCS: 81001; 87086

== ENCOUNTER 2018-09-29 14:23 | Observation (INO) ==
[2018-09-29 15:26] VITALS: BMI 18.2
[2018-09-29] MEDS ORDERED: ATIVAN PO PRN (17:03)
[2018-09-29] MEDS ORDERED: MIRALAX PO PRN ×2 (17:03→17:30)
[2018-09-29] MEDS ORDERED: TYLENOL PO PRN (17:03)
[2018-09-29] MEDS ORDERED: NITROSTAT SL PRN (17:03)
[2018-09-29] MEDS ORDERED: COZAAR PO SCH ×2 (17:30→21:00)
[2018-09-29] MEDS ORDERED: DRISDOL PO SCH (17:30)
[2018-09-29] MEDS: ISOSORBIDE MONONITRATE 120 MG PO SCH (20:42)
[2018-09-29] MEDS: LOPRESSOR PO SCH (20:43)
[2018-09-29] MEDS: NORVASC PO SCH (20:44)
[2018-09-29] MEDS: PRILOSEC PO SCH (20:44)
[2018-09-29] MEDS: ATIVAN PO SCH (21:29)
[2018-09-29] MEDS: TYLENOL PO SCH (21:55)
--- NOTE | 2018-09-30 07:45 | DI ---
EXAM: Two views of the chest. History: Hypertension. Comparison: Chest radiograph 03/26/2018 Findings: Heart size is within normal limits. No focal consolidation. No appreciable pleural fluid and no pneumothorax. Atherosclerotic vascular calcifications of the aortic knob. Coronary calcific ations. Postsurgical changes of the cervical spine. No acute osseous abnormalities. Degenerative c hanges of the spine. Impression: 1. No acute cardiopulmonary process. 2. Coronary artery disease
[2018-09-30] MEDS ORDERED: NON-FORMULARY MEDICATION (Hydrochlorothiazide [Hydrochlorothiazide] 12.5 MG) PO SCH (09:00)
[2018-09-30] MEDS ORDERED: COZAAR PO SCH (09:00)
[2018-09-30] MEDS ORDERED: NON-FORMULARY MEDICATION PO SCH (09:15)
[2018-09-30] MEDS: PRILOSEC PO SCH ×2 (09:15→21:02)
[2018-09-30] MEDS: TRADJENTA PO SCH (09:16)
[2018-09-30] MEDS: LOPRESSOR PO SCH ×3 (09:16→21:03)
[2018-09-30] MEDS: NON-FORMULARY MEDICATION (Lactobacillus Acidophilus [Probiotic] 1 EACH) PO SCH (09:17)
[2018-09-30] MEDS: NORVASC PO SCH (09:20)
[2018-09-30] MEDS: ATIVAN PO SCH ×2 (09:24→21:03)
[2018-09-30] MEDS: BENICAR PO SCH (09:25)
[2018-09-30] MEDS: NON-FORMULARY MEDICATION (Amlodipine Besylate [Norvasc] 5 MG) PO SCH (09:28)
[2018-09-30] MEDS ORDERED: NON-FORMULARY MEDICATION (Amlodipine Besylate [Norvasc] 2.5 MG) PO SCH (09:30)
--- NOTE | 2018-09-30 10:13 | HP ---
DATE OF SERVICE: 09/29/18 CHIEF COMPLAINT: Uncontrolled hypertension. HISTORY OF PRESENT ILLNESS: The patient presented to the emergency room at [facility] because of speech disturbance. The patient after the visit was referred to Dr. Kimball, a neurologist. She did see Dr. Kimball today and the patient had an EEG, which was unremarkable. 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 Doppler scan of carotids was negative. The patient was informed that her blood pressure was high and directed the patient to come to me. The patient was then seen at the office for check on the blood pressure. The blood pressure was 218/ 77 initially and the manual was 220. The patient was seated for some time and rested, but the blood pressure remained essentially the same. It was then felt that this patient probably should be observed in the hospital for better control of he blood pressure with added medication. The patient, as well as the daughter, was agreeable and the patient was then admitted. The patient had no associated symptoms with the hypertension, such as headache or visual disturbances. 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 She had bilateral cataract extractions, carotid surgery, coronary artery disease, cardiac catheterization 2011 with stent deployed. History of IBS, GERD. Type II diabetes mellitus, total abdominal hysterectomy with BSO. Cervical disc surgery times two, lumbar surgery. FAMILY HISTORY: Hemorrhoids in the paternal side. The paternal side had history of colon carcinoma, plus gastric. SOCIAL HISTORY: The patient is a and resides alone and is self sufficient. She has a very good family support coming from her daughter and son -in-law. MEDICATIONS: Prior to this admission. Tylenol 1000 mg tablet two to three times a day Lorazepam 0.5 mg tablet at bedtime Hydrochlorothiazide 12.5 mg daily Miralax 17 grams daily Vitamin D 50,000 units monthly Omeprazole 20 mg twice a day Tradjenta 5 mg daily Amlodipine 2.5 mg daily Losartan 50 mg tablet daily Metoprolol tartrate 25 mg twice a day Ranexa 500 mg twice a day Isosorbide mononitrate ER 120 mg tablet daily ALLERGIES: Metformin, Penicillin and Codeine. REVIEW OF SYSTEMS: CONSTITUTIONAL: The patient denies any fever or chills or fatigue. HEAT TREATMENT TECHNICIAN: Daughter mentioned about some speech difficulty prompting the emergency room visit at [facility] and was referred to a neurologist and found no remarkable abnormalities. She had no ataxia, syncope or seizure episodes. AUDITORY: Hearing loss, but not using a hearing aid. The patient at times has some dizziness, but no pain, drainage or tinnitus. RESPIRATORY: No cough, no shortness of breath with usual exertion and no hemoptysis. CARDIOVASCULAR: Denies any chest pain or tightness or diaphoresis or weakness. GASTROINTESTINAL: The patient's appetite had not been very big, but no dysphagia or anorexia. Denies any abdominal pain. GENITOURINARY: No burning on urination and no frequency. MUSCULOSKELETAL: The patient has significant joint pains. She does take some Tylenol for the pain. ENDOCRINE: The patient has Type II diabetes mellitus and is on Tradjenta, but no polyuria or polydipsia. INTEGUMENT: Denies any rash, pruritus or ecchymosis. HEMATOLOGIC: Negative. PSYCHIATRIC: Affect is normal and pleasant. PHYSICAL EXAMINATION: GENERAL: We have an 87 year old female admitted to the hospital because of uncontrolled hypertension. The blood pressure at the neurologist office was beyond 200 systolic and was also beyond 200 at the office at 218/77 and the same taken 15 minutes later. The patient is alert and oriented at the time of examination. HEAD: Unremarkable. Face symmetrical and equal with no facial weakness and no tenderness in the frontal and maxillary sinus areas to palpation under pressure. EYES: Pupils equal/reactive to light and round about 3 mm in size. Previous cataract extraction on both eyes. Conjunctivae not pale. Sclerae not icteric. MOUTH: Unremarkable. THROAT: No inflammation, tumors or exudate. NECK: The patient had two surgeries to the cervical spine. The patient does have a hardware on the second operation. The patient also had a previous carotid endarterectomy. No masses. No bruit audible on either side. No tenderness. No rigidity. CHEST: Symmetrical and equal with good expansion. No remarkable tenderness. LUNGS: Breath sounds are heard in both sides. No rales or wheezing. HEART: Audible and regular with good tones. No murmurs. ABDOMEN: Flat, soft with no remarkable tenderness. No guarding. Bowel sounds are active. No masses palpable. No bruit. EXTERNAL GENITALIA: Not examined. Pelvic not done. RECTAL: Not performed. LOWER EXTREMITIES: Symmetrical and equal with no edema. Anterior tibial pulses are present. The posterior tibials are absent. UPPER EXTREMITIES: Symmetrical and equal. ASSESSMENT: 1. HYPERTENSION UNCONTROLLED 2. HISTORY OF CORONARY ARTERY DISEASE, STATUS POST CARDIAC CATHETERIZATION AND STENT 3. HISTORY OF DIABETES MELLITUS TYPE II CONTROL UNDETERMINED 4. HISTORY OF VITAMIN D DEFICIENCY. ON VITAMIN D 50,000 UNITS MONTHLY. 5. HISTORY OF GERD 6. HISTORY OF IBS 7. HISTORY OF MICROSCOPIC HEMATURIA 8. HISTORY OF ANEMIA 9. HISTORY OF LUMBAR SURGERY 10. HISTORY OF RECENT SPEECH DIFFICULTY, NEGATIVE WORKUP 11. HISTORY OF CLOSTRIDIUM DIFFICILE COLITIS TREATED WITH DIFICID PLAN: Increase Amlodipine to 5 mg daily and see what happens. TIME SPENT: GREATER THAN 65 MINUTES MTDD
[2018-09-30] MEDS: TYLENOL PO SCH ×2 (10:39→21:00)
[2018-09-30] MEDS: ISOSORBIDE MONONITRATE 120 MG PO SCH (21:03)
[2018-10-01] MEDS ORDERED: ASPIRIN EC PO SCH (09:00)
[2018-10-01] MEDS ORDERED: HYDROCHLOROTHIAZIDE PO SCH (09:00)
[2018-10-01] MEDS: NON-FORMULARY MEDICATION (Amlodipine Besylate [Norvasc] 5 MG) PO SCH (09:25)
[2018-10-01] MEDS: PRILOSEC PO SCH (09:25)
[2018-10-01] MEDS: NON-FORMULARY MEDICATION (Lactobacillus Acidophilus [Probiotic] 1 EACH) PO SCH (09:27)
[2018-10-01] MEDS: TRADJENTA PO SCH (09:27)
[2018-10-01] MEDS: ATIVAN PO SCH (09:30)
[2018-10-01] MEDS: BENICAR PO SCH (09:42)
[2018-10-01] MEDS: LOPRESSOR PO SCH (09:42)
[2018-10-01] MEDS: TYLENOL PO SCH (09:45)
[2018-10-01] MEDS ORDERED: ATIVAN PO PRN (11:02)
[2018-10-01 14:10] VITALS: BP 119/66; TEMP 97.7
--- NOTE | 2018-10-04 14:18 | PN ---
DATE OF SERVICE: 09/30/18 SUBJECTIVE: The patient was seen in the afternoon and the patient was alert and feeling well. I asked her if she has any particular pain and she said no. Her vital signs showed a temperature of 98.5, pulse 59, blood pressure 132/62, respiratory rate 14 and oxygen saturation 96% at room air. Blood pressure had been acceptable. It did rise to 158/69 but the rest of them were lower than that. I did tell her that she most likely can go home today and I asked her if Neli, her daughter, has been here and she told me that she will in the hospital soon and I would wait to talk to her. Neli and Robb indeed did come to the hospital but I did not talk to them since the nurse told me that her blood pressure at 6:00 210/80. It had never been that high I did tell the nurse to take a manual. Because of the elevated blood pressure I felt that I probably needed to do some further investigation and so urinary metanephrines was requested as well as a 24 hour urine was collected. Medication Amlodipine 2.5mg daily was increased to 5mg. Lorazepam was given twice a day 0.5mg instead of at bedtime only. The Losartan was discontinue and replaced with Olmesartan 40mg daily. Metoprolol was increased to 50mg twice a day from 25mg. The hydrochlorothiazide was left at the same dose. CBC today showed slightly lower hgb and hct from yesterday 11 and 33.3 respectively. Electrolytes were acceptable. Co2 normal 25.4, BUN 17.2, creatinine 0.94, EGFR 56. Calcium remains slightly high 10.34 upper normal 10.2. Liver panel normal. Vitamin B12 940, high and the homocysteine is 14.1 normal 0.0 to 15.0. I believe I also requested for Methylmalonic acid and I still do not have that report. Urinalysis done today showed trace-intact blood, RBC microscopic 2-5 slightly higher, squamous cells are 5-10 normal 0-5. We will keep her tonight and see how her blood pressure runs tomorrow and through the night tonight. We will continue collecting the urine for urinary catecholamines MTDD
--- NOTE | 2018-10-05 08:34 | DS ---
DATE OF SERVICE: 10/01/2018 PATIENT IDENTIFICATION: 87 year old female was admitted to the hospital for observation. She had been to a doctor in [employer] [facility], Neurologist Dr. Kimball, since she went to the emergency room with some memory problems or foggy brain. She was told that the tests were negative -EEG, MRI and vascular studies of the carotid. Blood pressure was elevated and so she was directed to come to the office and indeed her blood pressure was high at 218/77. The manual systolic up to 15 minutes still has it at 220 systolic. Because of the persistent systolic elevation, the patient was advised admission to the hospital for further observation and change of medication and control of the hypertension. The patient does have diabetes mellitus. HOSPITAL COURSE: The patient's active medications were Tylenol 1000 mg two to three times a day for joint pains. Lorazepam 0.5 mg at bedtime, Hydrochlorothiazide 12.5 mg daily, Vitamin D 50,000 units monthly, Omeprazole 20 mg twice a day, Tradjenta 5 mg daily, Amlodipine 2.5 mg daily, Losartan 50 mg daily, Metoprolol 25 mg twice a day, Ranexa 500 mg twice a day. This patient had chest pain and had cardiac catheterization, which showed no significant coronary artery disease for bypass. The patient is also on Isosorbide mononitrate ER 120 mg daily. The patient's blood pressure on admission to the hospital was lower than at the office and it was recorded at 161/67 left and 157/67 right. It did go up to 190 /74 at 5:44 p.m. on the day of admission. Blood pressure remained above normal until midnight between 116 and 117 with a reading of 125/68. Blood pressure had remained about that range or very close to it, except at 10 o'clock in the morning of 09/30/2018 where the blood pressure did register at 158/69. At 6 p.m. on 09/30/2018, the blood pressure did spike to 210/80. This was after I had informed the patient that she probably can go home since her blood pressure has now remained close to normal. Subsequent blood pressure an hour later was still elevated at 171/89 and so I did not go back to talk to her daughter and son-in-law. Changes of medication were done. I told the nurse to give the Losartan dose in the evening and this patient will start on Benicar in the morning. 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 The patient's vital signs on discharge on 10/01/2018 at 2 p.m. showed a temperature of 97.7, pulse 56, blood pressure 119/66, respiratory rate 18, oxygen saturation 95 at room air. She is alert and oriented. I did talk to her about the spike in her blood pressure and she told me that it most likely was due to her dog, since she worried about it. I did not understand about her worry about the dog, since I told her that she can go home, so that would have relieved the worries that she had. I do believe that it probably was anxiety induced. The patient is alert and oriented, not dyspneic, nor tachypneic and no weakness of upper or lower extremities and speech is not slurred. LUNGS: Clear to auscultation in both sides at the time of discharge. No rales or wheezing. HEART: Audible and regular with good tones. No murmurs and not tachycardic. ABDOMEN: Unremarkable. The patient was feeling well and does not have any headaches or visual disturbances. PLAN: The patient is then discharged with the following changes; discontinue Losartan. Take Benicar 40 mg daily in the morning. Take 5 mg of Amlodipine daily, two of the 2.5 mg tablets that she has. Lorazepam twice a day instead of once a day. Metoprolol tartrate two tablets twice a day and resume the Vitamin D, baby Aspirin, Tylenol, Hydrochlorothiazide and Isosorbide Mononitrate. Amlodipine to 5 mg daily. She also has to resume the Tradjenta 5 mg daily. I will see her in one week and before if there is any concerns. Chest x-ray was reviewed again and the patient has no acute cardiopulmonary processes. The patient does have coronary artery calcifications. FINAL DIAGNOSES: 1. HYPERTENSION UNCONTROLLED, IMPROVED 2. DIABETES MELLITUS TYPE II 3. HISTORY OF GERD ON OMEPRAZOLE 4. ANGINA ON MEDICATION 5. HISTORY OF CORONARY ARTERY DISEASE, STATUS POST CARDIAC CATHETERIZATION AND STENT 6. HISTORY OF VITAMIN D DEFICIENCY, TREATED 7. HISTORY OF IBS 8. HISTORY OF MICROSCOPIC HEMATURIA 9. HISTORY OF ANEMIA 10. HISTORY OF LUMBAR SURGERY 11. HISTORY OF RECENT SPEECH DIFFICULTY AND SEEN AT [facility] AND REFERRED TO NEUROLOGIST, DR. KIMBALL AND HE SAW HER ON THE DAY OF ADMISSION 12. HISTORY OF CLOSTRIDIUM DIFFICILE COLITIS, TREATED PROGNOSIS: Guarded. TIME SPENT: GREATER THAN 30 MINUTES MTDD
== END 2018-10-01 16:21 | disposition home or self-care (01) ==
LOC: MEDSURG B 14:23
PROVIDERS: ADMIT General Practice; ATTEND General Practice
DX: I16.0 Hypertensive urgency (principal); E11.9 Type 2 diabetes mellitus without complications; K21.9 Gastro-esophageal reflux disease without esophagitis; I20.9 Angina pectoris, unspecified; I25.10 Atherosclerotic heart disease of native coronary artery without angina pectoris; E55.9 Vitamin D deficiency, unspecified; D64.9 Anemia, unspecified
CPT/HCPCS: 36415; 80053; 81001; 81050; 82607; 83090; 83835; 83921; 85025; 93005; 93010; 97802; 99217; 99220; 99225

== ENCOUNTER 2019-01-13 12:37 | Outpatient (CLI) | payer OTHER | END 2019-01-13 12:38 | disposition home or self-care (01) | LOC: RHC-LAB 12:37 | PROVIDERS: ATTEND General Practice | DX: E11.9 Type 2 diabetes mellitus without complications (principal); I10 Essential (primary) hypertension; N18.3 Chronic kidney disease, stage 3 (moderate); E55.9 Vitamin D deficiency, unspecified; Z79.899 Other long term (current) drug therapy; E53.8 Deficiency of other specified B group vitamins | CPT/HCPCS: 36415; 80053; 80061; 81001; 85025; 87086 ==

== ENCOUNTER 2019-01-26 13:52 | Outpatient (POV) | END 2019-01-26 17:00 | LOC: OUTPT 13:52 | PROVIDERS: ATTEND Otolaryngology | DX: H91.90 Unspecified hearing loss, unspecified ear (principal) | CPT/HCPCS: 92557; 92567 ==

== ENCOUNTER 2019-03-07 15:40 | Outpatient (CLI) | END 2019-03-07 15:41 | disposition home or self-care (01) | LOC: RHC-LAB 15:40 | PROVIDERS: ATTEND General Practice | DX: R35.0 Frequency of micturition (principal); R30.9 Painful micturition, unspecified; R31.9 Hematuria, unspecified | CPT/HCPCS: 36415; 80053; 81001; 85025; 87086; 87186 ==